=== PATIENT | male | born 1990 | race Caucasian/White ===

== ENCOUNTER → 2023-08-14 14:36 | Outpatient (CLI) | payer OTHER, SELFPAY ==
--- NOTE | ~2023-08-14 | MR_ITS ---
EXAMINATION: MR ankle RT wo con DATE: 08/14/2023 15:09 INDICATION: Chronic right ankle pain TECHNIQUE: Magnetic resonance imaging (MRI) of the right ankle was performed without intravenous cont rast. Sequences included sagittal, coronal, and axial proton-density weighted fast spin echo without and with fat saturation. COMPARISON: None. FINDINGS: Medial ankle ligaments: Mild scarring at the deep deltoid ligament with loss of the normally more well-defined striated patte rn. The superficial deltoid ligaments as well as the spring ligament are normal. Lateral ankle ligaments: The anterior and posterior inferior tibiofibular ligaments are normal. The posterior talofibular liga ment is normal. There is heterotopic ossification at the tibial and fibular size of the anterior talo fibular ligament consistent with sequela of chronic sprain. There is thickening and mild increased si gnal of the calcaneofibular ligament particularly at its fibular attachment consistent with additiona l scarring related to chronic sprain. Tendons: Achilles tendon is normal. The peroneus longus and brevis tendons are normal. The tibialis anterior a nd extensor hallucis longus and extensor digitorum longus tendons are normal. The tibialis posterior, flexor digitorum longus and flexor hallucis longus tendons are normal. Plantar fascia: Plantar aponeurosis is normal. Bones/other: Bone alignment is normal. Normal marrow signal with no fracture, reactive edema or pathologic marrow replacing process. Mild osteoarthritis at the ankle joint with medial predominant nonuniform joint sp traci narrowing and small marginal osteophytes along the anterior margin of the tibial plafond. Fluid: Physiologic amount fluid in the joint spaces. No tenosynovitis, bursitis or other abnormal fluid rubén ections. IMPRESSION: 1. Chronic medial and lateral ankle sprains involving the deep deltoid ligament and the anterior talo fibular and calcaneofibular ligaments. 2. Mild osteoarthritis at the right ankle. Reviewed, dictated and finalized at location A. IGERATOR CAR ICER IMPRESSION: 1. Chronic medial and lateral ankle sprains involving the deep deltoid ligament and the anterior talofibular and calcaneofibular ligaments. 2. Mild osteoarthritis at the right ankle.
== END ==
PROVIDERS: PCP Podiatrist Foot & Ankle Surgery; Visit Provider Podiatrist Foot & Ankle Surgery
DX: M19.071 Primary osteoarthritis, right ankle and foot (principal); S93.411A Sprain of calcaneofibular ligament of right ankle, initial encounter; X58.XXXA Exposure to other specified factors, initial encounter
CPT/HCPCS: 73721

== ENCOUNTER 2023-09-18 01:23 | Day surgery (SDC) | payer OTHER, SELFPAY ==
[2023-09-10 11:52] VITALS: BMI 34.4
--- NOTE | 2023-09-10 11:55 | PC.NURSE ---
Report to the Outpatient Waiting Room, entrance under the green pavilion located off [facility], at time 0800 on date 09/18/23. Planned Procedure Time: 1000. Time changes happen often and if your time is changed the preop area will call you the afternoon before. - You and your visitor will be asked to self-screen and do not enter if you have any COVID symptoms. - A mask is optional within the hospital at this time. Patients may have clear liquids (water, carbonated beverages, clear teas, apple juice) until 3 hours prior to surgery with a maximum of 20 ounces. - No food from midnight until time of surgery Take the following medications with a SIP of water the morning of surgery: BUPROPION DO NOT STOP ANY OF YOUR OTHER PRESCRIPTION MEDICATIONS PRIOR TO SURGERY ?EXCEPT THE FOLLOWING Medications to discontinue per physician: VITAMINS Date to take last dose: 09/14/23 Please no make-up, nail english, hairspray, perfume, deodorant, or body powder the day of surgery. No jewelry (including any body piercings) or valuables the day of surgery, leave them at home. Please take a shower or bath the night before, or the morning of, surgery with an antibacterial soap. Wear comfortable, loose fitting clothing. - Jewelry must be removed prior to entering the operating room. Rings and piercings that are not removed may be cut off. - The hospital will not accept responsibility for valuables. - Please leave all valuables, including medications, at home the day of surgery. If you are going home after surgery, a licensed waste collection driver must drive you home. - NO public transportation without another adult if you receive anesthesia. - We recommend that an adult stay with you for 24 hours following discharge. - We also recommend that you do not drive, make important decision, drink alcoholic beverages, or take any drugs that were not prescribed by your health care provider for at least 24 hours after your discharge time. Follow any additional instructions given to you from your surgeon. If you or anyone in your household have experienced Covid symptoms in the past week, please notify your surgeon or the nurse liaison at the phone number below for possible testing. Telephone instructions given to PT - RAFA and asked if any additional questions and then verbalized understanding. Patient advised to call surgeon office or pre surgery nurse liaison [phone] if any additional questions.
[2023-09-18] VITALS (9 sets, daily range): BP systolic 114–143; BP diastolic 57–90; PULSE 63–83; RESP 14–19; TEMP 36.1–37.2; O2SAT 92–100
--- NOTE | ~2023-09-18 | XR_ITS ---
XR surgery orthopedic Indication: Right ankle surgery TECHNIQUE: Fluoroscopy used during Right ankle surgery performed by [Alfredo Murillo JR MD] on 09/18/2023. 11 seconds of fluoroscopy time with 2 fluoroscopic images captured. FINDINGS: Correlate with procedure note. IMPRESSION: Fluoroscopy used during Right ankle surgery. Reviewed, dictated and finalized at location B.
--- NOTE | 2023-09-18 07:12 | WPDHPUPDATE1 ---
History and Physical Update Update Date/Time: 09/18/23 07:12 History and Physical has been reviewed, including an updated exam of the patient. There are NO changes in the patient's condition. Risks, benefits, and alternatives have been discussed and questions answered. Patient agrees to proceed with procedure.
[2023-09-18] MEDS: LACTATED RINGERS 1,000 ML 30 ML IV CONT ×2 (08:30→10:45)
--- NOTE | 2023-09-18 08:34 | WPDANESEPPF ---
Anes - Initial Pre Proc Eval Procedure: Operation Date: 09/18/23 10:00 Proposed Procedures p Emily Lateral Right Ankle Stabilization - Alfredo Murillo JR, MD Date/Time: 09/18/23 08:34 Surgeon: Alfredo Murillo JR, MD Pre Op Diagnosis: Rt Lateral Ankle Instability Patient Data Age: 32 Gender: M Height: 1.7 m Weight: 99.8 kg Allergies Allergy/AdvReac Type Severity Reaction Status Date / Time No Known Allergies Allergy Verified 09/18/23 07:58 Home Medications Medication Instructions Recorded Confirmed Type bupropion HCl 150 mg 24 hr tablet, 150 mg PO DAILY 09/10/23 09/18/23 History extended release multivitamin 1 tablet PO DAILY 09/10/23 09/18/23 History Patient hx anesthesia problems: none Family hx anesthesia problems: none Results Review: All pre-operative results and documents have been reviewed as part of the pre-operative evaluation. [facility] Social History Social History Smoking status: Never smoker Alcohol intake: current Drinks per week: 3 Substance use: never Substance use type: does not use Living arrangements: with family Spiritual care concerns: No Anes - Eval Final PreProcedure Day of Procedure 09/18/23 08:34 Patient weight: obese Heart: regular rate and rhythm Lungs: clear to auscultation Airway: Mallampati scale Neurological: alert and oriented Last oral intake: >/= 8 hours ASA classification: III Emergent: no Anesthetic plan: proceed Anesthesia type and monitoring: general LMA and standard monitoring Results Review: All pre-operative results and documents have been reviewed as part of the pre-operative evaluation. Informed Consent: The patient's anesthetic plan and its attendant risks and benefits were discussed with the patient/family/POA. Questions were solicited and answers provided to the satisfaction of the patient/family/POA.
[2023-09-18] MEDS: SCOPOLAMINE 1 MG PATCH 1 PATCH TRANSDERM (08:40)
[2023-09-18] MEDS: ceFAZolin 2 GM/D5W 50 ML 2 GM/50 ML BAG IVPB (09:04)
[2023-09-18] MEDS: LIDOCAINE HCL 2% LOCAL INJ 20 ML VIAL 10 ML INFILTRATE (09:29)
--- NOTE | 2023-09-18 10:59 | W.PM.PROC2 ---
Procedure Note - Detailed Date of Procedure 09/18/23 Pre-op Diagnosis Rt Lateral Ankle Instability Post-op Diagnosis Same Procedure Performed Brostrom lateral Ankle Stabilization right Surgeon Alfredo Murillo JR, DPM Anesthesia General and Local Indications Positive Anterior drawer and Talar tilt clinically and with Stress Fluroscopy Views Description of Procedure Under mild sedation, the patient was brought in to the operating room, placed on the operating table in the lateral decubitus position. A pneumatic thigh tourniquet was placed about the patient's thigh. Following general anesthesia, local anesthesia was obtained about the proximal leg utilizing 20 mL of local anesthesia of a one to one mix of 0.5% Marcaine plain and 2% Lidocaine plain, administered just inferior and posterior to the neck of the fibula 10ccs and also 10cm superior to the lateral malleolus with an additional 10cc's. The foot and distal leg were then scrubbed, prepped, and draped in the usual aseptic manner. An Esmarch bandage was then used to exsanguinate the patient's foot and ankle and the pneumatic thigh tourniquet was then inflated. An incision was made starting 2cm proximal to the lateral malleolus extending four centimeters in an oblique fashion over the lateral aspect of neck of the talus. The incision was continued deep down through the subcutaneous tissues using sharp and blunt dissection. All bleeders were ligated and cauterized as necessary. Next I identified the anterior aspect of the lateral malleolus and cut through the lateral anterior capsule and the elongated lateral ankle ligaments exposing the anterior and inferior margins of the distal fibula. I used a rongeur to expose cancellous bone in order to promote adhesion along the anteior and inferior aspect of the fibular. Next, I utilized the Arthrex Drill guide to drive a guide wire for the Arthrex internal brace system into the lateral aspect of the talus. The guide was positioned within the sinus tarsi canal with the paddle at the seven thirty position in order to appropriately orient the distal arm of the internal brace anchor. I utilized fluoroscopy to make sure that the guide wire was adequately positioned. Moreover, I tapped and screwed in the distal anchor for the Internal Brace Implant. Next, I drilled two holes and tapped in the biocomposite Suture Dennys anchors. In addition in between the Suture Dennys drill holes I drilled a hole for the fibular component of the Internal Brace system. Next, with the foot everted and dorsiflexed I advanced the lateral ankle ligament and retinaculum to the fibula. Finally I properly tensioned the fibular component of the Arthrex Internal brace system and drove in the bone anchor following the standard technique guidelines. the foot was held slightly flexed and neutral in the frontal plane during the tensioning of the Internal brace. I utilized the remaining two sutures and provided needles from the Suture Taks to reinforce the repair by incorporating the lateral ankle capsule and ligaments and secured to the periosteum overlying the distal fibula. Excellent improvement was noted as far as the clinical anterior drawer and talar tilt. Next the subcutaneous structures were reapproximated and coapted utilizing 3-0 Vicryl. Next, the skin was reapproximated and coapted utilizing 4-0 Monocryl in running subcuticular suture fashion technique. Upon completion of the procedure, the incisions were all dressed with 1/4 inch Steri Strips, Adaptic, 4x4s, Kerlix, and Coban. The pneumatic thigh tourniquet was then deflated and a prompt hyperemic response was noted to all digits of the affected foot. A posterior splint was then applied with the foot held 90 degrees to the leg and the foot everted. The patient did very well with the procedure and the anesthesia. The patient was transferred to the recovery room with vital signs stable and vascular status intact to all toes of the affecte
[2023-09-18] MEDS: fentaNYL CITRATE INJ (*CRX) 100 MCG/2 ML VIAL 25 MCG IV PUSH ×5 (11:04→11:55)
[2023-09-18] MEDS: oxyCODONE HCL (*CRX) 5 MG TAB IR PO (11:55)
== END 2023-09-18 12:32 | disposition home or self-care (01) ==
PROVIDERS: Visit Provider Podiatrist Foot & Ankle Surgery
PROC: (CPT 27698; principal; 2023-09-18 10:00)
DX: M25.371 Other instability, right ankle (principal); M19.071 Primary osteoarthritis, right ankle and foot; Z87.828 Personal history of other (healed) physical injury and trauma; E66.9 Obesity, unspecified; Z68.35 Body mass index [BMI] 35.0-35.9, adult
CPT/HCPCS: 27698; 99199; A9270; C1713; J0690; J1100; J2250; J2405; J2704; J3010; J7120